=== PATIENT | male | born 1955 | race Caucasian/White ===

== ENCOUNTER → 2020-07-23 | Outpatient (CLI) | payer MEDICARE | LOC: KOH-I 07-21 15:00 | DX: Z12.2 Encounter for screening for malignant neoplasm of respiratory organs (principal); R91.8 Other nonspecific abnormal finding of lung field; Z87.891 Personal history of nicotine dependence | CPT/HCPCS: 71271 ==

== ENCOUNTER → 2020-08-16 | Outpatient (CLI) | payer MEDICARE ==
[2020-08-16 12:21] LABS: BUN/CREATININE RATIO 18 (0-10)
== END ==
LOC: LAB 10:15
PROVIDERS: Family Medicine
DX: E11.65 Type 2 diabetes mellitus with hyperglycemia (principal)
CPT/HCPCS: 36415; 80053

== ENCOUNTER → 2021-01-11 | Outpatient (CLI) | payer MEDICARE | LOC: KOH-I 13:18 | DX: R91.1 Solitary pulmonary nodule (principal); R91.8 Other nonspecific abnormal finding of lung field | CPT/HCPCS: 71250 ==

== ENCOUNTER → 2021-04-22 | Outpatient (CLI) | payer MEDICARE | LOC: ECHO 10:43 | DX: R07.89 Other chest pain (principal); R06.02 Shortness of breath; I34.0 Nonrheumatic mitral (valve) insufficiency | CPT/HCPCS: ECHO; 93306 ==

== ENCOUNTER → 2021-09-30 | Outpatient (CLI) | payer MEDICARE ==
[~2021-09-30] VITALS: Ht 172.7 cm; Wt 100.7 kg
== END ==
LOC: EROP 12:22
DX: U07.1 COVID-19 (principal); I10 Essential (primary) hypertension; J98.4 Other disorders of lung; Z23 Encounter for immunization
CPT/HCPCS: M0222; Q0222